=== PATIENT | male | born 1990 | race Caucasian/White ===

== ENCOUNTER 2022-08-01 10:42 | Emergency (ER) | payer BC, SELFPAY ==
[2022-08-01] VITALS (13 sets, daily range): BP systolic 131–158; BP diastolic 62–91; PULSE 76–89; RESP 16–20; TEMP 37.1; O2SAT 94–100; BMI 31.4
--- NOTE | 2022-08-01 10:56 | DI.RAD.S_ITS ---
PROCEDURE: XR RIBS RT MIN 3V W CXR 1V INDICATIONS: fall onto right side t-1 TECHNIQUE: 2 views of the right ribs were acquired, along with a single view chest. COMPARISON: None. FINDINGS: Surgical changes and devices: None. Bones and chest wall: No fractures or dislocations. No suspicious bony lesions. Overlying soft tissues appear unremarkable. Lungs and pleura: No pleural effusions or pneumothorax. Lungs appear clear. Mediastinum: Mediastinal contours appear normal. Heart size is normal. IMPRESSION: No displaced fracture or pneumothorax. Dictated by: Tanner Vazquez M.D. on 08/01/2022 at 11:21 Approved by: Tanner Vazquez M.D. on 08/01/2022 at 11:22
--- NOTE | 2022-08-01 13:32 | DI.CT.S_ITS ---
PROCEDURE: CT CHEST ABD PEL W CON INDICATIONS: fall, ruq pain, mid back pain TECHNIQUE: After the administration of intravenous contrast, 5 mm thick sections acquired from the lung apices to the symphysis. 2.5 mm thick coronal and sagittal reformats were acquired. Additional 7 mm thick coronal maximum intensity projection (MIP) reformats acquired through the lungs. Optional 10-minute delayed imaging may be performed from the kidneys to the bladder. For radiation dose reduction, the following was used: automated exposure control, adjustment of mA and/or kV according to patient size. COMPARISON: None. FINDINGS: Image quality: Excellent. CHEST: Lungs: No pulmonary contusions or lacerations. No acute airspace opacities. No pneumothorax or hemothorax. Central and peripheral airways appear patent and normal in caliber. Random distribution of pulmonary micro nodules. Mediastinum: No mediastinal hematomas. Heart size is normal. No pericardial effusion. Thoracic aorta and pulmonary arteries demonstrate normal size and enhancement. Prominent mediastinal lymph nodes. Esophagus is normal in caliber. No hiatal hernia. Chest wall: No rib fractures. No subcutaneous emphysema. No axillary or supraclavicular adenopathy. Thyroid gland is unremarkable. ABDOMEN: Solid organs: Liver is normal in size and enhancement, without lacerations. Hepatic steatosis, likely marked. Hepatic calcifications. Gallbladder is unremarkable. Biliary system is non-dilated. Pancreas enhances normally, without transection. Spleen is normal in size and enhancement, without lacerations. No adrenal hematomas. Both kidneys enhance normally, without hydronephrosis or lacerations. Peritoneum and bowel: No free fluid or air. Unenhanced bowel loops demonstrate normal wall thickness and caliber. Nodes and vessels: No retroperitoneal or mesenteric adenopathy. Aorta and inferior vena cava are normal in size and enhancement. Miscellaneous: No ventral hernias. PELVIS: Genitourinary: Bladder wall thickness is normal. Miscellaneous: No inguinal hernias or adenopathy. Bones: Pelvic ring and hip joints appear intact. No vertebral compression fractures. IMPRESSION: No evidence of traumatic injury to the chest, abdomen or pelvis. Prominent mediastinal lymph nodes and random distribution of pulmonary micro nodules. Findings are suspicious for sarcoidosis. Metastatic disease or malignancy is less likely. Dictated by: Tanner Vazquez M.D. on 08/01/2022 at 14:47 Approved by: Tanner Vazquez M.D. on 08/01/2022 at 15:01
[2022-08-01] MEDS: KETOROLAC 30 MG/ML VIAL 15 MG IV (13:55)
[2022-08-01 13:57] LABS: Add Manual Diff / Slide Review NO; Basophils Absolute Auto 0 /uL (0-100); Basophils Percent Auto 0.3 % (0-2); Eosinophils Absolute Auto 100 /uL (0-450); Eosinophils Percent Auto 0.9 % (2-4); Hematocrit 45.8 % (41-53); Lymphocytes Absolute Auto 700 /uL (1100-4500); Lymphocytes Percent Auto 10.5 % (25-40); Mean Corpuscular HGB Conc 34.9 % (30-36); Mean Corpuscular Volume 94.6 fL (80-100); Monocytes Absolute Auto 700 /uL (0-900); Monocytes Percent Auto 11.3 % (3-14); Neutrophils Absolute Auto 4800 /uL (1500-7000); Platelet Count 214 X10^3/uL (150-400); Red Blood Cell Count 4.84 X10^6/uL (4.5-5.9); Red Cell Distribution Width 12.4 % (11.6-14.8); White Blood Cell Count 6.3 X10^3/uL (4.5-11.0)
[2022-08-01 14:12] LABS: Alanine Aminotransferase 90 IU/L (<50); Albumin 4.5 g/dL (3.5-5.0); Albumin Globulin Ratio 1.3 (1.0-2.8); Alkaline Phosphatase 85 U/L (38-126); Aspartate Aminotransferase 71 IU/L (17-59); Bilirubin Total 0.7 mg/dL (0.2-1.3); Blood Urea Nitrogen 9 mg/dL (9-20); Carbon Dioxide 25 mmol/L (22-32); Chloride 103 mmol/L (98-107); Estimated Glomerular Filt Rate > 60 mL/min (>60); Globulin 3.4 g/dL (1.7-4.1); Glucose 78 mg/dL (70-100); HEMOLYSIS < 15 (0-50); Lipase 138 U/L (23-300); Potassium 3.9 mmol/L (3.4-5.1); Sodium 138 mmol/L (137-145); Total Protein 7.9 g/dL (6.3-8.2)
--- NOTE | 2022-08-01 14:54 | ED.FALL ---
HPI - Fall <Oral French PA-C - Last Filed: 08/03/22 21:26> General Chief Complaint: Fall Stated Complaint: tripped landed on side RT side ribs hurt T-1 Time Seen by Provider: 08/01/22 12:39 Source: patient Mode of arrival: Wheelchair History of Present Illness HPI Narrative: 32-year-old male with no reported past medical history presents to the ED status post a mechanical fall sustained yesterday. Patient states he fell onto his right side, injuring his ribs. Patient endorses pain. Patient denies fever, chills, chest pain, shortness of breath, nausea, vomiting, abdominal pain, dysuria, lightheadedness, dizziness, syncope. Related Data Home Medications Medication Instructions Recorded Confirmed No Known Home Medications 08/01/22 08/01/22 Allergies Allergy/AdvReac Type Severity Reaction Status Date / Time No Known Drug Allergies Allergy Verified 08/01/22 10:55 Review of Systems <Oral French PA-C - Last Filed: 08/03/22 21:26> Review of Systems ROS Unobtainable: All systems reviewed & are unremarkable except as noted in HPI and below Constitutional Constitutional: Denies chills, Denies fatigue, Denies fever(s), Denies frequent falls, Denies lethargy and Denies weakness Eyes Eyes: Denies change in vision, Denies eye discharge, Denies irritation and Denies loss of vision ENT Ears, Nose, Mouth, and Throat: Denies change in voice, Denies dizziness, Denies neck pain, Denies sore throat and Denies throat swelling Cardiovascular Cardiovascular: Denies chest pain, Denies irregular heart rhythm, Denies lightheadedness, Denies palpitations, Denies dyspnea, Denies dyspnea on exertion and Denies orthopnea Respiratory Respiratory: Denies cough, Denies dyspnea, Denies dyspnea on exertion and Denies wheezing Gastrointestinal Gastrointestinal: Denies abdominal pain, Denies change in bowel habits, Denies diarrhea, Denies nausea and Denies vomiting Genitourinary Genitourinary: Denies hematuria, Denies flank pain, Denies urinary incontinence and Denies urinary urgency Musculoskeletal Musculoskeletal: Denies back pain, Denies muscle weakness, Denies neck pain, Denies numbness and Denies tingling Comments: Rib pain Integumentary/Breasts Skin/Breast: Denies pruritus, Denies erythema, Denies rash and Denies wounds Neurologic Neurologic: Denies behavioral changes, Denies confusion, Denies dizziness, Denies frequent falls, Denies loss of vision, Denies numbness, Denies tingling and Denies weakness Psychiatric Psychiatric: Denies anxiety, Denies behavioral changes, Denies confusion, Denies depression, Denies homicidal ideation and Denies suicidal ideation Endocrine Endocrine: Denies fatigue, Denies flushing and Denies palpitations Hematologic/Lymphatic Hematologic/Lymphatic: Denies easy bruising Allergic/Immunologic Allergic/Immunologic: Denies urticaria, Denies throat swelling and Denies wheezing Patient History <Oral French PA-C - Last Filed: 08/03/22 21:26> Social History Smoking Status: Current every day smoker Smoking Status: Current every day smoker alcohol intake frequency: 0-2 drinks per day Substance Use Type: marijuana Exam <Oral French PA-C - Last Filed: 08/03/22 21:26> Narrative Exam Narrative: Const General:?cooperative, healthy appearing and comfortable [facility] Head:?normal to inspection Ears:?hearing grossly normal bilaterally Nose:?external nose normal Face and sinus:?normal facial exam and sinuses nontender Mouth:?oral mucosae normal Throat:?posterior oropharynx normal Eyes General:?appearance normal, both eyes and all related structures Neck Neck:?normal visual inspection and no lymphadenopathy noted Resp Effort & Inspection:?normal respiratory effort Auscultation:?clear to auscultation bilaterally Cardio Rate:?regular rate Rhythm:?regular rhythm GI Abdomen is soft, nondistended. There is some tenderness to palpation of the lateral right side. Neuro General:?patient alert, patient awake and patient oriented x3 Initial Vital Signs Initial Vital Signs: Vital Signs Temperature 98.7 F 08/01/22 10:52 Pulse Rate 87 08/01/22 10:52 Respiratory Rate 16 08/01/22 10:52 Blood Pressure 158/87 H 08/01/22 10:52 Pulse Oximetry 100 08/01/22 10:52 Oxygen Delivery Method Room Air 08/01/22 10:52 <Ayan Nixon DO - Last Filed: 08/05/22 18:00> Initial Vital Signs Initial Vital Signs: Vital Signs Temperature 98.7 F 08/01/22 10:52 Pulse Rate 87 08/01/22 10:52 Respiratory Rate 16 08/01/22 10:52 Blood Pressure 158/87 H 08/01/22 10:52 Pulse Oximetry 100 08/01/22 10:52 Oxygen Delivery Method Room Air 08/01/22 10:52 Course <Oral French PA-C - Last Filed: 08/03/22 21:26> Orders Ordered: Discontinued Medications Ketorolac Tromethamine (Ketorolac 30 Mg/Ml Vial) 15 mg IV NOW ONE Stop: 08/01/22 13:32 Last Admin: 08/01/22 13:55 Dose: 15 mg Documented By: NADIA Vital Signs Vital signs: Vital Signs - 8 hr 08/01/22 10:52 08/01/22 12:35 08/01/22 12:34 Temperature 98.7 F Pulse Rate 87 82 83 Respiratory Rate 16 18 Blood Pressure 158/87 H 134/84 Pulse Oximetry 100 99 97 Oxygen Delivery Method Room Air Room Air 08/01/22 13:00 08/01/22 13:30 08/01/22 14:00 Temperature Pulse Rate 80 82 83 Respiratory Rate Blood Pressure Pulse Oximetry 94 95 96 Oxygen Delivery Method 08/01/22 14:24 08/01/22 14:24 Temperature Pulse Rate 81 Respiratory Rate Blood Pressure 139/91 H Pulse Oximetry 97 Oxygen Delivery Method <Ayan Nixon DO - Last Filed: 08/05/22 18:00> Orders Ordered: Discontinued Medications Ketorolac Tromethamine (Ketorolac 30 Mg/Ml Vial) 15 mg IV NOW ONE Stop: 08/01/22 13:32 Last Admin: 08/01/22 13:55 Dose: 15 mg Documented By: NADIA Vital Signs Vital signs: Vital Signs - 8 hr 08/01/22 10:52 08/01/22 12:35 08/01/22 12:34 Temperature 98.7 F Pulse Rate 87 82 83 Respiratory Rate 16 18 Blood Pressure 158/87 H 134/84 Pulse Oximetry 100 99 97 Oxygen Delivery Method Room Air Room Air 08/01/22 13:00 08/01/22 13:30 08/01/22 14:00 Temperature Pulse Rate 80 82 83 Respiratory Rate Blood Pressure Pulse Oximetry 94 95 96 Oxygen Delivery Method 08/01/22 14:24 08/01/22 14:24 Temperature Pulse Rate 81 Respiratory Rate Blood Pressure 139/91 H Pulse Oximetry 97 Oxygen Delivery Method MDM - Fall <Oral French PA-C - Last Filed: 08/03/22 21:26> Lab Data 08/01/22 13:50 08/01/22 13:50 Labs: Lab Results 08/01/22 08/01/22 Range/Units 13:50 13:50 WBC 6.3 (4.5-11.0) X10^3/uL RBC 4.84 (4.5-5.9) X10^6/uL Hgb 16.0 (13.5-17.5) g/dL Hct 45.8 (41-53) % MCV 94.6 (80-100) fL MCH 33.0 (26-34) PG MCHC 34.9 (30-36) % RDW 12.4 (11.6-14.8) % Plt Count 214 (150-400) X10^3/uL Neut % (Auto) 77.0 H (50-75) % Lymph % (Auto) 10.5 L (25-40) % [place] % (Auto) 11.3 (3-14) % Eos % (Auto) 0.9 L (2-4) % Baso % (Auto) 0.3 (0-2) % Neut # (Auto) 4800 (2218-2672) /uL Lymph # (Auto) 700 L (7640-8044) /uL [place] # (Auto) 700 (0-900) /uL Eos # (Auto) 100 (0-450) /uL Baso # (Auto) 0 (0-100) /uL Sodium 138 (137-145) mmol/L Potassium 3.9 (3.4-5.1) mmol/L Chloride 103 (98-107) mmol/L Carbon Dioxide 25 (22-32) mmol/L BUN 9 (9-20) mg/dL Creatinine 0.60 L (0.66-1.25) mg/dL Estimated GFR > 60 (>60) mL/min BUN/Creatinine Ratio 15.0 (6-22) Glucose 78 (70-100) mg/dL Calcium 9.0 (8.4-10.2) mg/dL Total Bilirubin 0.7 (0.2-1.3) mg/dL AST 71 H (17-59) IU/L ALT 90 H (<50) IU/L Alkaline Phosphatase 85 (38-126) U/L Total Protein 7.9 (6.3-8.2) g/dL Albumin 4.5 (3.5-5.0) g/dL Globulin 3.4 (1.7-4.1) g/dL Albumin/Globulin Ratio 1.3 (1.0-2.8) Lipase 138 (23-300) U/L [facility] Narrative Medical decision making narrative: 32-year-old male with no reported past medical history presents to the ED status post a mechanical fall sustained yesterday. Obtained labs, CT abdomen pelvis. Labs without acute findings. CT abdomen pelvis with no evidence of traumatic injury to the chest, abdomen or pelvis. Patient's symptoms likely due to rib contusion, recommend ibuprofen or Tylenol. There were some prominent mediastinal lymph nodes and random distribution of pulmonary micro nodules. These findings are suspicious for sarcoidosis. Metastatic disease or malignancy is less likely. Findings were discussed with patient. Patient agrees to follow-up with his PCP and pulmonology. ED return precautions were discussed with patient. Patient verbalized understanding. Medical records reviewed: Yes <Ayan Nixon DO - Last Filed: 08/05/22 18:00> Lab Data Labs: Lab Results 08/01/22 08/01/22 Range/Units 13:50 13:50 WBC 6.3 (4.5-11.0) X10^3/uL RBC 4.84 (4.5-5.9) X10^6/uL Hgb 16.0 (13.5-17.5) g/dL Hct 45.8 (41-53) % MCV 94.6 (80-100) fL MCH 33.0 (26-34) PG MCHC 34.9 (30-36) % RDW 12.4 (11.6-14.8) % Plt Count 214 (150-400) X10^3/uL Neut % (Auto) 77.0 H (50-75) % Lymph % (Auto) 10.5 L (25-40) % [place] % (Auto) 11.3 (3-14) % Eos % (Auto) 0.9 L (2-4) % Baso % (Auto) 0.3 (0-2) % Neut # (Auto) 4800 (9567-2451) /uL Lymph # (Auto) 700 L (8218-4095) /uL [place] # (Auto) 700 (0-900) /uL Eos # (Auto) 100 (0-450) /uL Baso # (Auto) 0 (0-100) /uL Sodium 138 (137-145) mmol/L Potassium 3.9 (3.4-5.1) mmol/L Chloride 103 (98-107) mmol/L Carbon Dioxide 25 (22-32) mmol/L BUN 9 (9-20) mg/dL Creatinine 0.60 L (0.66-1.25) mg/dL Estimated GFR > 60 (>60) mL/min BUN/Creatinine Ratio 15.0 (6-22) Glucose 78 (70-100) mg/dL Calcium 9.0 (8.4-10.2) mg/dL Total Bilirubin 0.7 (0.2-1.3) mg/dL AST 71 H (17-59) IU/L ALT 90 H (<50) IU/L Alkaline Phosphatase 85 (38-126) U/L Total Protein 7.9 (6.3-8.2) g/dL Albumin 4.5 (3.5-5.0) g/dL Globulin 3.4 (1.7-4.1) g/dL Albumin/Globulin Ratio 1.3 (1.0-2.8) Lipase 138 (23-300) U/L Discharge Plan Departure Patient Disposition: Home Clinical Impression: Rib contusion Instructions: How to Prevent Falls Activity Restrictions/Additional Instructions: You were evaluated in the ED for rib pain. Your x-ray and CT scan did not show any fractures or dislocations or internal bleeds. Your symptoms are likely due to a rib contusion from the fall. There were some incidental findings from the CT which included prominent mediastinal lymph nodes and random distribution of pulmonary micro nodules, which are suspicious for sarcoidosis, and less likely metastatic disease or malignancy. Please follow-up with your PCP, [employer] worker as soon as possible for further evaluation of this. Return to the ED if you experience chest pain, shortness of breath. Prescriptions: No Action No Known Home Medications Referrals: Miscellaneous,Doctor, [Primary Care Provider] - Stand Alone Forms: Patient Portal/API <Ayan Nixon DO - Last Filed: 08/05/22 18:00> Cosign ED Attending Cosignature Attestation: Dr Nixon Co-Sign Statement: I was available for consultation during this patient's emergency department visit. This chart is signed by myself for administrative purposes only. I did not have direct contact with this patient during this visit. They were seen independently by the APC.
== END 2022-08-01 16:06 | disposition home or self-care (01) ==
PROVIDERS: Emergency Provider Student in an Organized Health Care Education/Training Program
DX: S20.211A Contusion of right front wall of thorax, initial encounter (principal); W18.30XA Fall on same level, unspecified, initial encounter
CPT/HCPCS: 36415; 71101; 71260; 74177; 80053; 83690; 85025; 96374; 99284; J1885; Q9967

== ENCOUNTER 2024-04-08 04:44 | Emergency (ER) | payer BC, SELFPAY ==
[2024-04-08 04:49] VITALS: BP 155/92; PULSE 90; RESP 22; TEMP 36.7; O2SAT 94; BMI 30.7
--- NOTE | 2024-04-08 04:57 | DI.RAD.S_ITS ---
PROCEDURE: XR CHEST 1V INDICATIONS: SOB TECHNIQUE: One view of the chest was acquired. COMPARISON: [facility], CR, XR RIBS RT MIN 3V W CXR 1V, 08/01/2022, 11:03. FINDINGS: Surgical changes and devices: None. Lungs and pleura: No consolidation. No pleural effusions or pneumothorax. Mediastinum: Mediastinal contours appear normal. Heart size is normal. Bones and chest wall: No suspicious bony lesions. Overlying soft tissues appear unremarkable. IMPRESSION: No acute cardiopulmonary abnormality is seen. Dictated by: Harish Wesley M.D. on 04/08/2024 at 8:02 Approved by: Harish Wesley M.D. on 04/08/2024 at 8:05
[2024-04-08] MEDS: ALBUTEROL/IPRATROPIUM 3 ML AMPUL 6 ML INH (05:01)
[2024-04-08 05:04] VITALS: PULSE 80; RESP 18; O2SAT 97
--- NOTE | 2024-04-08 05:40 | ED.SOB ---
HPI - SOB/Dyspnea General Chief Complaint: Shortness of Breath/Dyspnea Stated Complaint: SOB Time Seen by Provider: 04/08/24 04:57 Source: patient Mode of arrival: Ambulatory Limitations: no limitations History of Present Illness HPI Narrative: Patient is a 33-year-old male who presents to day with difficulty breathing. He reports that over the last 2-3 weeks he has had increasing shortness of breath with exertion. He has no fever chills or sore throat. He is an active smoker he has been trying to cut back but still smoking daily. He feels like his lungs do not expand like they should did. He has not had any recent travel no history of DVT or blood clot. I am evaluating him after albuterol Related Data Previous Rx's Medication Instructions Recorded albuterol sulfate 90 mcg/actuation 2 puff inhalation Q4-6H PRN 04/08/24 aerosol inhaler shortness of breath or wheezing #8.5 grams Allergies Allergy/AdvReac Type Severity Reaction Status Date / Time No Known Drug Allergies Allergy Verified 08/01/22 10:55 Patient History Social History Smoking Status: Current every day smoker Smoking Status: Current every day smoker alcohol intake frequency: 0-2 drinks per day Exam Initial Vital Signs Initial Vital Signs: Vital Signs Temperature 98.0 F 04/08/24 04:49 Pulse Rate 90 04/08/24 04:49 Respiratory Rate 22 04/08/24 04:49 Blood Pressure 155/92 H 04/08/24 04:49 Pulse Oximetry 94 04/08/24 04:49 Oxygen Delivery Method Room Air 04/08/24 04:49 GENERAL: Pleasant well-appearing 33-year-old male and in no acute distress. HEENT: Head atraumatic,EOMI, pupils reactive, face symmetric, moist mucous membranes CARDIOVASCULAR: Regular rate and rhythm without murmurs, rubs or gallops. RESPIRATORY: Slight wheezing bilaterally no conversational dyspnea no respiratory distress EXTREMITIES: Normal range of motion, no clubbing or edema. Neurovascularly intact NEUROLOGICAL: Alert and oriented x4.Normal gait and speech. Cranial nerves II through XII grossly intact. SKIN: Warm, dry, no laceration, no petechiae, no rashes or lesions. Course Orders Ordered: ED Orders 04/08/24 04:55 Covid-19 + FLU A/B + RSV - PCR Stat 04/08/24 04:57 CXR [XR chest 1V] Stat Discontinued Medications Albuterol (Albuterol Hfa Prepack) 1 box MISC DIRECTED ONE Stop: 04/08/24 05:54 Last Admin: 04/08/24 06:00 Dose: 1 box Documented By: ZOFIA Albuterol/Ipratropium (Albuterol/Ipratropium 3 Ml Ampul) 6 ml INH NOW ONE Stop: 04/08/24 05:00 Last Admin: 04/08/24 05:01 Dose: 6 ml Documented By: MILLER Vital Signs Vital signs: Vital Signs - 8 hr 04/08/24 04:49 04/08/24 05:04 04/08/24 06:06 Temperature 98.0 F Pulse Rate 90 80 72 Respiratory Rate 22 18 18 Blood Pressure 155/92 H 146/78 H Pulse Oximetry 94 97 96 Oxygen Delivery Method Room Air Room Air Room Air Fraction of Inspired Oxygen 21 MDM - SOB/Dyspnea Lab Data Labs: Lab Results 04/08/24 Range/Units 04:55 SARS-CoV-2 (PCR) Negative (Negative) Influenza A (RT-PCR) Flu a negative (NEGATIVE) Influenza B (RT-PCR) Flu b negative (NEGATIVE) RSV (PCR) Negative (Negative) Imaging Data Chest x-ray: My Impression: No acute cardiopulmonary process no consolidation MDM Narrative Medical decision making narrative: 33-year-old male active smoker presenting today with increasing difficulty breathing. Nursing reports that he was quite wheezy throughout he does have a little bit of wheezing after the albuterol. He overall feels much better. He has no infectious symptoms x-ray has been reviewed by myself overall no abnormality viral panel is negative. Discussion with him about stopping smoking. He has no leg swelling no recent travel no history of DVT or PE. Since he is a smoker with wheezing that improved with albuterol and symptoms improved with the albuterol I suspect that this is the cause Discharge Plan Departure Patient Disposition: Home Clinical Impression: Asthma with exacerbation Instructions: DI for Asthma -- Adult Activity Restrictions/Additional Instructions: *You have been diagnosed with asthma/COPD *What to do: At this time I do believe that your breathing issue is related to your smoking. I strongly recommend that you stop smoking. Your x-ray does not show any pneumonia you viral panel is negative *Continue to take medications as directed Albuterol 1-2 puffs every 4 hours if needed for shortness of breath. I do recommend that you take it before bed to help with your breathing *Follow up with your primary care provider in 2-3 days or call [phone] *Return to ER if you should have increasing shortness of breath chest pain fever or any new, worsening or concerning symptoms Prescriptions: New albuterol sulfate 90 mcg/actuation HFA aerosol inhaler 2 puff INHALATION Q4-6H PRN (Reason: shortness of breath or wheezing) Qty: 8.5 0RF Referrals: Miscellaneous,Doctor, MD [Primary Care Provider] - Stand Alone Forms: Patient Portal/API/Survey
[2024-04-08 05:41] LABS: Influenza A - CEPHEID Flu A NEGATIVE (NEGATIVE); Influenza B - CEPHEID Flu B NEGATIVE (NEGATIVE); Respiratory Syncytial Virus Negative (Negative)
[2024-04-08 05:46] LABS: COVID-19 CEPHEID 4-PLEX PCR Negative (Negative)
[2024-04-08] MEDS: ALBUTEROL HFA PREPACK 1 BOX MISC (06:00)
[2024-04-08 06:06] VITALS: BP 146/78; PULSE 72; RESP 18; O2SAT 96
== END 2024-04-08 06:07 | disposition home or self-care (01) ==
PROVIDERS: Emergency Provider Emergency Medicine
DX: J45.901 Unspecified asthma with (acute) exacerbation (principal); F17.200 Nicotine dependence, unspecified, uncomplicated
CPT/HCPCS: 0241U; 71045; 94640; 99283

== ENCOUNTER → 2024-08-01 15:19 | Outpatient (CLI) | payer BC, SELFPAY | PROVIDERS: PCP Family Medicine; Referring Provider Family Medicine; Visit Provider Family Medicine | DX: J45.901 Unspecified asthma with (acute) exacerbation (principal); F17.210 Nicotine dependence, cigarettes, uncomplicated; R94.2 Abnormal results of pulmonary function studies | CPT/HCPCS: 94060; 94726; 94729 ==